=== PATIENT | female | born 1970 | race Caucasian/White ===

== ENCOUNTER 2020-12-10 10:14 | Inpatient (IN) ==
[2020-12-10] MEDS ORDERED: Ketorolac 15 MG/ML VIAL IVP ONE (10:38)
[2020-12-10] MEDS ORDERED: Isovue-370 500 ML BOTTLE IVP ONE (10:38)
[2020-12-10] MEDS ORDERED: Ondansetron 4 MG/2 ML VIAL IVP ONE (10:38)
[2020-12-10] MEDS ORDERED: 0.9 % Sodium Chloride 1,000 ML IVC ONE (10:38)
[2020-12-10 11:16] LABS: Basophils % 0.3 %; Eosinophils # 0.1 K/mcL (0.0-0.6); Eosinophils % 1.3 %; Hematocrit 39.2 % (35.3-44.9); Immature Granulocytes % 0.3 % (0-4); Lymphocytes # 2.6 K/mcL (0.6-4.6); Lymphocytes % 23.5 %; Mean Corpuscular HGB Conc 33.2 g/dL (31.6-35.5); Mean Corpuscular Hemoglobin 29.4 pg (28.0-33.3); Mean Corpuscular Volume 88.7 fL (83.0-100.0); Monocytes # 0.9 K/mcL (0.0-1.3); Monocytes % 7.6 %; Neutrophils # 7.5 K/mcL (1.6-8.9); Platelet Count 283 K/mcL (140-400); Red Blood Count 4.42 M/mcL (3.82-4.97); Red Cell Distribution Width 13.2 % (11.5-14.5); White Blood Count 11.2 K/mcL (4.3-11.1)
[2020-12-10 11:35] LABS: BUN/Creatinine Ratio 17 (6-26); Blood Urea Nitrogen 8 mg/dL (6-20); C-Reactive Protein 19 mg/L (Less than 10); Calcium 9.3 mg/dL (8.6-10.3); Carbon Dioxide 28 mEq/L (23-29); Chloride 105 mEq/L (98-107); Glucose 109 mg/dL (70-105); Osmolality,Calculated 289 (280-300); Potassium 3.8 mEq/L (3.5-5.1); Sodium 140 mEq/L (136-145); eGFR For African Americans > 60 (> 60); eGFR For Non-African Americans > 60 (> 60)
[2020-12-10 11:48] LABS: Bilirubin,Urine Negative (Negative); Blood,Urine Negative (Negative); Clarity,Urine Clear (Clear); Color,Urine Colorless (Yellow); Glucose,Urine (UA) Normal (Normal); Ketones,Urine Negative (Negative); Leukocyte Esterase,Urine Negative (Negative); Nitrite,Urine Negative (Negative); Protein,Urine Negative (Neg-Trace); Specific Gravity,Urine 1.011 (1.010-1.025); Urobilinogen,Urine Normal (Normal)
[2020-12-10] MEDS ORDERED: Naloxone 0.4 MG/ML INJ IVP PRN (14:39)
[2020-12-10] MEDS ORDERED: Acetaminophen 325 MG TABLET PO PRN (14:39)
[2020-12-10] MEDS ORDERED: *HR* OxyCODONE Immed Rel 5 MG TABLET PO PRN (15:52)
[2020-12-10] MEDS ORDERED: Nicotine 2 MG GUM BC PRN (16:20)
[2020-12-10] MEDS: Piperacillin/Tazobactam 3.375 GM in 0.9 % Sodium Chloride Mini Bag 100 ML IVPB SCH (17:16)
[2020-12-10] MEDS: Clindamycin 600 MG/50 ML 600 MG/50 ML IV.SOLN IVPB SCH (17:17)
[2020-12-10] MEDS ORDERED: Ipratropium/Albuterol Neb 3 ML IH PRN (17:32)
[2020-12-10] MEDS ORDERED: hydrOXYzine pamoate 25 MG CAPSULE PO PRN (19:21)
[2020-12-10] MEDS ORDERED: Dextrose Gel 15 GM/37.5 ML TUBE PO PRN ×2 (19:25)
[2020-12-10] MEDS ORDERED: D5% in Water 1,000 ML IVC PRN (19:25)
[2020-12-10] MEDS ORDERED: *HR* Dextrose 50 % in Water (Vial) 50 ML VIAL IVP PRN (19:25)
[2020-12-10] MEDS: Nicotine 21 MG PATCH.TD24 TD SCH (19:41)
[2020-12-10] MEDS: Insulin LISPRO 300 UNITS/3 ML VIAL SUBQ SCH (20:37)
[2020-12-10] MEDS: Vancomycin 1,250 MG/262.5 ML IV.SOLN IVPB SCH (21:30)
[2020-12-10] MEDS ORDERED: Vancomycin (wt based) 1,000 MG VIAL IV SCH (22:40)
[2020-12-11] MEDS: Clindamycin 600 MG/50 ML 600 MG/50 ML IV.SOLN IVPB SCH ×3 (00:44→18:43)
[2020-12-11 01:24] LABS: Basophils % 0.3 %; Eosinophils # 0.2 K/mcL (0.0-0.6); Eosinophils % 1.4 %; Hematocrit 36.4 % (35.3-44.9); Hemoglobin 11.6 g/dL (11.5-15.4); Immature Granulocytes % 0.3 % (0-4); Lymphocytes # 2.7 K/mcL (0.6-4.6); Lymphocytes % 22.7 %; Mean Corpuscular HGB Conc 31.9 g/dL (31.6-35.5); Mean Corpuscular Hemoglobin 28.7 pg (28.0-33.3); Mean Corpuscular Volume 90.1 fL (83.0-100.0); Monocytes # 0.9 K/mcL (0.0-1.3); Monocytes % 7.6 %; Neutrophils # 8.1 K/mcL (1.6-8.9); Platelet Count 240 K/mcL (140-400); Red Blood Count 4.04 M/mcL (3.82-4.97); Red Cell Distribution Width 13.2 % (11.5-14.5); Segmented Neutrophils % 67.7 %; White Blood Count 11.9 K/mcL (4.3-11.1)
[2020-12-11] MEDS: Piperacillin/Tazobactam 3.375 GM in 0.9 % Sodium Chloride Mini Bag 100 ML IVPB SCH ×3 (01:25→18:47)
[2020-12-11 01:41] LABS: BUN/Creatinine Ratio 19 (6-26); Blood Urea Nitrogen 10 mg/dL (6-20); Calcium 8.8 mg/dL (8.6-10.3); Carbon Dioxide 25 mEq/L (23-29); Chloride 106 mEq/L (98-107); Glucose 127 mg/dL (70-105); Osmolality,Calculated 285 (280-300); Potassium 3.8 mEq/L (3.5-5.1); Sodium 137 mEq/L (136-145); eGFR For African Americans > 60 (> 60); eGFR For Non-African Americans > 60 (> 60)
[2020-12-11] MEDS: *HR* Heparin 5,000 UNIT/ML VIAL SQ SCH ×2 (05:59→18:54)
[2020-12-11] MEDS: Insulin LISPRO 300 UNITS/3 ML VIAL SUBQ SCH ×4 (08:30→22:11)
[2020-12-11] MEDS ORDERED: Aspirin Enteric Coated 81 MG Tablet PO SCH (09:00)
[2020-12-11] MEDS ORDERED: cloNIDine HCL 0.1 MG TABLET PO SCH (09:00)
[2020-12-11] MEDS ORDERED: TRIAMCINOLONE ACETONIDE IH SCH (09:00)
[2020-12-11] MEDS ORDERED: Loratadine 10 MG TABLET PO SCH (09:00)
[2020-12-11] MEDS ORDERED: lamoTRIgine 100 MG TABLET PO SCH (09:00)
[2020-12-11] MEDS ORDERED: BuPROPion XL (24 HR) 150 MG TABLET PO SCH (09:00)
[2020-12-11] MEDS: Nicotine 21 MG PATCH.TD24 TD SCH (09:21)
[2020-12-11] MEDS: Vancomycin 1,250 MG/262.5 ML IV.SOLN IVPB SCH ×2 (12:40→22:11)
[2020-12-12] MEDS: Clindamycin 600 MG/50 ML 600 MG/50 ML IV.SOLN IVPB SCH ×2 (00:04→00:32)
[2020-12-12] MEDS: Piperacillin/Tazobactam 3.375 GM in 0.9 % Sodium Chloride Mini Bag 100 ML IVPB SCH ×4 (00:04→16:16)
[2020-12-12] MEDS ORDERED: *HR* Propofol 200 MG/20 ML VIAL IVP ONE ×2 (00:27→02:44)
[2020-12-12] MEDS ORDERED: *HR* FentaNYL (PF) 100 MCG/2 ML VIAL ONE (00:28)
[2020-12-12] MEDS ORDERED: Ondansetron 4 MG/2 ML VIAL ONE (00:30)
[2020-12-12] MEDS ORDERED: Lidocaine -MPF 2% 2 ML VIAL ONE (00:30)
[2020-12-12] MEDS ORDERED: Neostigmine Methylsulfate 3 MG/3 ML SYRINGE ONE ×2 (00:55→02:35)
[2020-12-12] MEDS ORDERED: *HR* Rocuronium Bromide 50 MG/5 ML VIAL ONE (01:23)
[2020-12-12] MEDS ORDERED: *HR* HYDROmorphone PF 0.5 MG/0.5 ML SYRINGE IVP PRN ×2 (01:25→07:19)
[2020-12-12] MEDS ORDERED: Promethazine 6.25 MG in Water for inj. (sterile) 20 ML IVPB PRN ×2 (01:25→07:19)
[2020-12-12] MEDS ORDERED: Ondansetron 4 MG/2 ML VIAL IVP PRN ×2 (01:25→07:19)
[2020-12-12] MEDS ORDERED: EPHEDrine 50 MG/ML VIAL ONE (03:05)
[2020-12-12] MEDS ORDERED: *HR* OxyCODONE Immed Rel 5 MG TABLET PO STA (03:51)
[2020-12-12] MEDS: *HR* Heparin 5,000 UNIT/ML VIAL SQ SCH ×2 (06:08→17:43)
[2020-12-12] MEDS ORDERED: D5% in Water 1,000 ML IVC PRN (07:19)
[2020-12-12] MEDS ORDERED: Naloxone 0.4 MG/ML INJ IVP PRN (07:19)
[2020-12-12] MEDS ORDERED: *HR* Dextrose 50 % in Water (Vial) 50 ML VIAL IVP PRN (07:19)
[2020-12-12] MEDS ORDERED: hydrOXYzine pamoate 25 MG CAPSULE PO PRN (07:19)
[2020-12-12] MEDS ORDERED: Acetaminophen 325 MG TABLET PO PRN (07:19)
[2020-12-12] MEDS ORDERED: Dextrose Gel 15 GM/37.5 ML TUBE PO PRN ×2 (07:19)
[2020-12-12] MEDS ORDERED: Nicotine 2 MG GUM BC PRN (07:19)
[2020-12-12] MEDS ORDERED: Ipratropium/Albuterol Neb 3 ML IH PRN (07:19)
[2020-12-12] MEDS ORDERED: Clindamycin 600 MG/50 ML 600 MG/50 ML IV.SOLN IVPB SCH (08:00)
[2020-12-12] MEDS: BuPROPion XL (24 HR) 150 MG TABLET PO SCH (08:44)
[2020-12-12] MEDS: Aspirin Enteric Coated 81 MG Tablet PO SCH (08:44)
[2020-12-12] MEDS: lamoTRIgine 100 MG TABLET PO SCH (08:45)
[2020-12-12] MEDS: Loratadine 10 MG TABLET PO SCH (08:45)
[2020-12-12] MEDS: cloNIDine HCL 0.1 MG TABLET PO SCH (08:45)
[2020-12-12] MEDS: Insulin LISPRO 300 UNITS/3 ML VIAL SUBQ SCH ×4 (08:46→21:25)
[2020-12-12] MEDS: Nicotine 21 MG PATCH.TD24 TD SCH (08:47)
[2020-12-12] MEDS: Vancomycin 1,250 MG/262.5 ML IV.SOLN IVPB SCH ×3 (08:47→21:23)
[2020-12-12 09:02] LABS: Hematocrit 39.4 % (35.3-44.9); Hemoglobin 12.7 g/dL (11.5-15.4); Mean Corpuscular HGB Conc 32.2 g/dL (31.6-35.5); Mean Corpuscular Hemoglobin 29.1 pg (28.0-33.3); Mean Corpuscular Volume 90.2 fL (83.0-100.0); Platelet Count 288 K/mcL (140-400); Red Blood Count 4.37 M/mcL (3.82-4.97); Red Cell Distribution Width 13.2 % (11.5-14.5); White Blood Count 15.5 K/mcL (4.3-11.1)
[2020-12-12 09:21] LABS: BUN/Creatinine Ratio 12 (6-26); Blood Urea Nitrogen 9 mg/dL (6-20); Calcium 9.4 mg/dL (8.6-10.3); Carbon Dioxide 24 mEq/L (23-29); Chloride 103 mEq/L (98-107); Glucose 171 mg/dL (70-105); Magnesium 1.5 mg/dL (1.6-2.6); Osmolality,Calculated 287 (280-300); Potassium 4.1 mEq/L (3.5-5.1); Sodium 137 mEq/L (136-145); Vancomycin,Trough 15 mcg/mL (5-10); eGFR For African Americans > 60 (> 60); eGFR For Non-African Americans > 60 (> 60)
[2020-12-12] MEDS: *HR* OxyCODONE Immed Rel 5 MG TABLET PO PRN ×2 (13:07→21:22)
[2020-12-12] MEDS: Morphine Sulfate 2 MG/ML SYRINGE IVP PRN (16:15)
[2020-12-13] MEDS: Piperacillin/Tazobactam 3.375 GM in 0.9 % Sodium Chloride Mini Bag 100 ML IVPB SCH ×2 (00:06→09:15)
[2020-12-13 04:11] LABS: Hematocrit 34.8 % (35.3-44.9); Hemoglobin 11.3 g/dL (11.5-15.4); Mean Corpuscular HGB Conc 32.5 g/dL (31.6-35.5); Mean Corpuscular Hemoglobin 29.2 pg (28.0-33.3); Mean Corpuscular Volume 89.9 fL (83.0-100.0); Platelet Count 277 K/mcL (140-400); Red Blood Count 3.87 M/mcL (3.82-4.97); Red Cell Distribution Width 13.2 % (11.5-14.5); White Blood Count 9.8 K/mcL (4.3-11.1)
[2020-12-13 04:29] LABS: BUN/Creatinine Ratio 17 (6-26); Blood Urea Nitrogen 15 mg/dL (6-20); Carbon Dioxide 28 mEq/L (23-29); Chloride 106 mEq/L (98-107); Glucose 154 mg/dL (70-105); Magnesium 1.9 mg/dL (1.6-2.6); Osmolality,Calculated 294 (280-300); Potassium 3.5 mEq/L (3.5-5.1); Sodium 140 mEq/L (136-145); eGFR For African Americans > 60 (> 60); eGFR For Non-African Americans > 60 (> 60)
[2020-12-13] MEDS: *HR* Heparin 5,000 UNIT/ML VIAL SQ SCH ×2 (06:02→16:55)
[2020-12-13] MEDS: Nicotine 21 MG PATCH.TD24 TD SCH (09:16)
[2020-12-13] MEDS: *HR* OxyCODONE Immed Rel 5 MG TABLET PO PRN (09:16)
[2020-12-13] MEDS: cloNIDine HCL 0.1 MG TABLET PO SCH (09:17)
[2020-12-13] MEDS: lamoTRIgine 100 MG TABLET PO SCH (09:17)
[2020-12-13] MEDS: Aspirin Enteric Coated 81 MG Tablet PO SCH (09:17)
[2020-12-13] MEDS: Loratadine 10 MG TABLET PO SCH (09:17)
[2020-12-13] MEDS: Insulin LISPRO 300 UNITS/3 ML VIAL SUBQ SCH ×4 (09:17→20:53)
[2020-12-13] MEDS: BuPROPion XL (24 HR) 150 MG TABLET PO SCH (09:17)
[2020-12-13] MEDS: Vancomycin 1,250 MG/262.5 ML IV.SOLN IVPB SCH ×2 (11:22→20:56)
[2020-12-13] MEDS: Morphine Sulfate 2 MG/ML SYRINGE IVP PRN (11:22)
[2020-12-13] MEDS ORDERED: Fluconazole 150 MG TABLET PO SCH (12:00)
[2020-12-14 02:05] VITALS: O2SAT 91
[2020-12-14 02:50] LABS: Hematocrit 36.5 % (35.3-44.9); Mean Corpuscular HGB Conc 32.9 g/dL (31.6-35.5); Mean Corpuscular Hemoglobin 29.3 pg (28.0-33.3); Mean Corpuscular Volume 89.2 fL (83.0-100.0); Mean Platelet Volume 9.9 fL (9.4-12.4); Platelet Count 260 K/mcL (140-400); Red Blood Count 4.09 M/mcL (3.82-4.97); Red Cell Distribution Width 13.1 % (11.5-14.5); White Blood Count 9.6 K/mcL (4.3-11.1)
[2020-12-14 03:07] LABS: BUN/Creatinine Ratio 15 (6-26); Blood Urea Nitrogen 12 mg/dL (6-20); Carbon Dioxide 26 mEq/L (23-29); Chloride 107 mEq/L (98-107); Glucose 140 mg/dL (70-105); Osmolality,Calculated 290 (280-300); Potassium 4.2 mEq/L (3.5-5.1); Sodium 139 mEq/L (136-145); eGFR For African Americans > 60 (> 60); eGFR For Non-African Americans > 60 (> 60)
[2020-12-14] MEDS: *HR* Heparin 5,000 UNIT/ML VIAL SQ SCH (04:13)
[2020-12-14] MEDS: *HR* OxyCODONE Immed Rel 5 MG TABLET PO PRN (04:17)
[2020-12-14 07:26] VITALS: BP 132/81; PULSE 81; TEMP 98.3
[2020-12-14] MEDS: Nicotine 21 MG PATCH.TD24 TD SCH (08:09)
[2020-12-14] MEDS: BuPROPion XL (24 HR) 150 MG TABLET PO SCH (08:10)
[2020-12-14] MEDS: Loratadine 10 MG TABLET PO SCH (08:10)
[2020-12-14] MEDS: lamoTRIgine 100 MG TABLET PO SCH (08:10)
[2020-12-14] MEDS: Aspirin Enteric Coated 81 MG Tablet PO SCH (08:10)
[2020-12-14] MEDS: cloNIDine HCL 0.1 MG TABLET PO SCH (08:11)
[2020-12-14] MEDS: Insulin LISPRO 300 UNITS/3 ML VIAL SUBQ SCH ×2 (08:11→11:02)
[2020-12-14] MEDS: Vancomycin 1,250 MG/262.5 ML IV.SOLN IVPB SCH (08:12)
== END 2020-12-14 13:30 | disposition home or self-care (01) | DRG 364 ==
LOC: 3BNU 10:14 → EMEROOARM 10:14 → SUATTDRO 15:18 → 3BNU 16:03
PROVIDERS: ADMIT Internal Medicine; ATTEND Internal Medicine